=== PATIENT | female | born 1940 | race Caucasian/White ===

== ENCOUNTER 2021-03-22 14:03 | Observation (INO) ==
[2021-03-22] MEDS ORDERED: GLUCAGON 1 ML IV ONE (14:57)
[2021-03-22] MEDS ORDERED: LORazepam 0.5 MG/1 ML VIAL IV STA (14:57)
--- NOTE | 2021-03-22 15:02 | Emergency Department Note ---
Impression & Plan Esophageal obstruction due to food impaction ED Provider Note NAME: EUGENIO CISSE AGE: 80 SEX: F : 1940 ARRIVES VIA: Walk-In INFORMANT: [Patient] ED PROVIDER(S): [Russell Alcantar MD] CHIEF COMPLAINT: Food bolus HISTORY OF PRESENT ILLNESS: The patient is an 80-year-old female presents to the ER with 2 hours of a sensation of an esophageal food bolus. The patient has a history of the same. The patient states that she was eating beef brisket about 2 hours ago and she felt something get caught. She could not swallow liquid or her saliva. At first, she had a hard time catching her breath but she never really had any coughing. She is not coughing now. She feels very similar to how she has felt before. Patient is not from the area. A few years ago, she had an esophageal food bolus. She has also had esophageal dilatation in the past. She has been in baseline health. She is vaccinated against COVID-19. REVIEW OF SYSTEMS: See HPI for pertinent positives and negatives. A total of ten systems were reviewed and were otherwise negative. PMHx/PSHx: See Below SOCIAL HISTORY: See Below. PHYSICAL EXAM: GENERAL: Patient is in no acute distress. Spitting out her saliva. HEENT: No acute trauma, normocephalic atraumatic, mucous membranes moist, no nasal congestion, no scleral icterus. NECK: No stridor, no adenopathy, no meningismus, trachea is midline. LUNGS: Clear to auscultation bilaterally, no wheeze, no rhonchi, breath sounds equal. HEART: 2/6 systolic murmur, regular rate and rhythm. ABDOMEN: Soft, nontender, bowel sounds positive, no hernias, no peritonitis. EXTREMITIES: No cyanosis or edema, full range of motion of all the joints without pain or difficulty, no signs for acute trauma. NEUROLOGIC: Oriented x 3, no acute motor or sensory deficits, no focal weakness. SKIN: No rash, no jaundice, no diaphoresis. DIFFERENTIAL DIAGNOSIS: Esophageal food bolus, esophagitis, esophageal narrowing, esophageal rupture, esophageal ring, aspiration, esophageal abrasion, among others. EMERGENCY DEPARTMENT COURSE/PROCEDURES: ECG: Indication was shortness of breath. The ECG shows a normal sinus rhythm with some sinus arrhythmia. There is a left bundle branch block. The rate is 76. 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 There are no PVCs. The QTc is 450. Continuous Cardiac Monitoring: An order was placed for continuous cardiac monitoring. The monitor shows a rate of 84 with normal sinus rhythm. MEDICAL DECISION MAKING: There is no leukocytosis or concerning anemia. There is a normal platelet count. There was some renal insufficiency with a creatinine of 1.56. No electrolyte abnormality in need of emergent correction. Covid testing returned negative. Chest film did not show pneumonia or CHF. ECG showed a sinus rhythm with a left bundle branch block. On exam, the patient was not wheezing, she was not hypoxic or toxic. She was spitting out her saliva. Patient was given IV glucagon and IV Ativan. This did not help her situation. I spoke with GI on-call. The patient is going to the GI lab for an endoscopy. She will require a hospital stay overnight for monitoring. I did speak with the patient and case management. The on-call hospitalist was consulted. Past Med/Surg History Medical History GERD (gastroesophageal reflux disease) HTN (hypertension) LBBB (left bundle branch block) Surgical History (Updated 03/22/21 @ 19:34 by Quin Patricia PA-C) History of bladder surgery History of cataract surgery History of esophagogastroduodenoscopy (EGD) History of hysterectomy Hx of tonsillectomy Family History (Updated 03/22/21 @ 19:34 by Quin Patricia PA-C) Other Coronary heart disease Diabetes Social History Smoking Status: Never smoker Second Hand Exposure: No; Hx Alcohol Use: No Hx Substance Use: No Preferred Language: [employer] Reading Teacher Required: No Beliefs That Will Affect Care: None Current Living Situation: Alone Other Information That Helps Us Care for You: No Feels Safe at Home: Yes Safety Concerns: Feels Safe At This Time Assistive Devices: Denture - Upper, Denture - Lower and Glasses Allergies Allergies Allergy/AdvReac Type Severity Reaction Status Date / Time No Known Allergies Allergy Unverified 03/22/21 15:50 Home Meds Home Medications Medication Instructions Recorded Confirmed alprazolam 0.5 mg tablet (Xanax) 0.5 mg PO HS PRN 03/22/21 03/22/21 cholecalciferol (vitamin D3) 25 25 mcg PO DAILY 03/22/21 03/22/21 mcg (1,000 unit) capsule (Vitamin D3) losartan 100 1 tab PO DAILY 03/22/21 03/22/21 mg-hydrochlorothiazide 12.5 mg tablet omeprazole 40 mg capsule,delayed 40 mg PO DAILY 03/22/21 03/22/21 release Results & Data (ED) Vital Signs Vital Signs - 24 hr 03/22/21 14:21 03/22/21 16:04 03/22/21 16:26 Temperature 36.9 C 37 C Temperature Source Temporal Artery Scan Pulse Rate 84 86 Pulse Rate [Apical] 86 Pulse Rate from SpO2 Sensor 91 H Pulse Rhythm Regular Pulse Rhythm [Apical] Regular Pulse Strength [Apical] Normal Respiratory Rate 18 18 21 Respiratory Effort / Characteristics Non-Labored Spontaneous Spontaneous Respiratory Depth Normal Normal Respiratory Pattern Regular Regular Blood Pressure 144/91 H 139/80 Blood Pressure [Right Arm] 139/80 Blood Pressure Mean 108 99 Blood Pressure Mean [Right Arm] 99 Blood Pressure Position [Right Arm] Semi-fowlers Pulse Oximetry 95 97 95 Oxygen Delivery Method Room Air Room Air Oxygen Flow Rate 0 Sepsis Recent Fever Within 48 Hours No Sepsis New/Unexplained Change in Mental Status No Sepsis Action Taken by Nursing No Action Required Home Medications Current Medication List: was personally reviewed by me Laboratory Data Attestation: I reviewed the patient's lab results. Result diagrams: 03/22/21 15:15 03/22/21 15:15 Lab Results 03/22/21 03/22/21 03/22/21 Range/Units 15:15 15:15 15:30 WBC 6.38 (4.8-10.8) K/uL RBC 4.65 (4.2-5.4) M/uL Hgb 13.9 (12.0-16.0) g/dL Hct 41.9 (37-47) % MCV 90.1 (80-100) fL MCH 29.9 (25-34) pg MCHC 33.2 (32-36) g/dL RDW Std Deviation 43.6 (36.4-46.3) fL RDW Coeff of Liliana 13.3 (11.5-14.5) % Plt Count 272 (130-400) K/uL MPV 9.9 (7.4-10.4) fL Sodium 141 (136-145) mmol/L Potassium 4.0 (3.5-5.1) mmol/L Chloride 108 H (98-107) mmol/L Carbon Dioxide 28 (21-32) mmol/L Anion Gap 5.0 (3-11) BUN 31 H (7-18) mg/dl Creatinine 1.56 H (0.6-1.2) mg/dl Est Cr Clr Drug Dosing Not Reportable Est GFR ( Amer) 36.0 ml/min Est GFR (Non-Af Amer) 31.1 ml/min BUN/Creatinine Ratio 20.0 (10-20) Glucose 107 H (70-99) mg/dl Calcium 9.7 (8.5-10.1) mg/dl COVID-19 Eval Order Covid19 at [facility] SARS-CoV-2 (PCR) (Negative) 03/22/21 Range/Units 15:30 WBC (4.8-10.8) K/uL RBC (4.2-5.4) M/uL Hgb (12.0-16.0) g/dL Hct (37-47) % MCV (80-100) fL MCH (25-34) pg MCHC (32-36) g/dL RDW Std Deviation (36.4-46.3) fL RDW Coeff of Liliana (11.5-14.5) % Plt Count (130-400) K/uL MPV (7.4-10.4) fL Sodium (136-145) mmol/L Potassium (3.5-5.1) mmol/L Chloride (98-107) mmol/L Carbon Dioxide (21-32) mmol/L Anion Gap (3-11) BUN (7-18) mg/dl Creatinine (0.6-1.2) mg/dl Est Cr Clr Drug Dosing Est GFR ( Amer) ml/min Est GFR (Non-Af Amer) ml/min BUN/Creatinine Ratio (10-20) Glucose (70-99) mg/dl Calcium (8.5-10.1) mg/dl COVID-19 Eval Order SARS-CoV-2 (PCR) NEGATIVE (Negative) Administered Medications Discontinued Medications Glucagon (Glucagen) 1 mls @ 1 mls/min IV ONE ONE Stop: 03/22/21 14:58 Last Admin: 03/22/21 15:16 Dose: 1 mls/min Documented by: [id number] Lorazepam (Ativan) 0.5 mg in 1 mls @ 1 mls/min IV NOW STA Stop: 03/22/21 14:58 Last Admin: 03/22/21 15:15 Dose: 1 mls/min Documented by: [id number] Imaging Data Radiologist's Impression: Chest X-Ray 03/22/21 14:57 XR chest 1V portable CLINICAL HISTORY: cough COMPARISON STUDY: No previous studies for comparison. FINDINGS: No pneumothorax. No pleural effusion. No large infiltrates or consolidative lesions are seen. Eventration of the right hemidiaphragm is seen. Lung volumes are decreased with crowded lung markings. Cardiomediastinal silhouette is within normal limits in size. No significant pulmonary vascular congestion.. Aorta is tortuous. Osseous structures: Degenerative changes of the spine. IMPRESSION: 1. No large infiltrates or consolidative lesions. Lung volumes are decreased with crowded lung markings. ACT 112: Negative or not required by law. The above report was generated using voice recognition software. It may contain grammatical, syntax or spelling errors. Electronically signed by: Jeanine Mejia DO 03/22/2021 4:05 PM Discharge Plan Visit Data Chief Complaint: Food Bolus Stated Complaint: FOOD BOLUS ED Provider: Russell Alcantar Discharge Problem: Esophageal obstruction due to food impaction Patient Disposition: Admitted As Inpatient Condition: Good Discharge Instructions Interventions: ED Discharge Assessment Last Done: 03/22/21 17:45
[2021-03-22 15:22] LABS: Hematocrit (blood only) 41.9 % (37-47); Hemoglobin 13.9 g/dL (12.0-16.0); Mean Corpuscular Hemoglobin 29.9 pg (25-34); Mean Corpuscular Hgb Conc 33.2 g/dL (32-36); Mean Corpuscular Volume 90.1 fL (80-100); Mean Platelet Volume 9.9 fL (7.4-10.4); Platelet Count 272 K/uL (130-400); RDW Coefficient of Variation 13.3 % (11.5-14.5); RDW Standard Deviation 43.6 fL (36.4-46.3); Red Blood Count 4.65 M/uL (4.2-5.4); White Blood Count 6.38 K/uL (4.8-10.8)
[2021-03-22 15:39] LABS: Blood Urea Nitrogen 31 mg/dl (7-18); Calcium 9.7 mg/dl (8.5-10.1); Carbon Dioxide 28 mmol/L (21-32); Chloride 108 mmol/L (98-107); Est GFR (Non-African American) 31.1 ml/min; Glucose 107 mg/dl (70-99); Sodium 141 mmol/L (136-145)
--- NOTE | 2021-03-22 15:55 | Electrocardiogram Report ---
Test Reason : Blood Pressure : / mmHG Vent. Rate : 076 BPM Atrial Rate : 076 BPM P-R Int : 160 ms QRS Dur : 144 ms QT Int : 400 ms P-R-T Axes : 029 -44 119 degrees QTc Int : 450 ms Normal sinus rhythm with sinus arrhythmia Left axis deviation Non-specific intra-ventricular conduction block Possible Anterolateral infarct , age undetermined Abnormal ECG No previous ECGs available Confirmed by Mark Merida ([id number]) on 03/22/2021 3:55:41 PM Referred By: Confirmed By:Familia Merida
--- NOTE | 2021-03-22 16:06 | XRay Report ---
XR chest 1V portable CLINICAL HISTORY: cough COMPARISON STUDY: No previous studies for comparison. FINDINGS: No pneumothorax. No pleural effusion. No large infiltrates or consolidative lesions are seen. Eventration of the right hemidiaphragm is see n. Lung volumes are decreased with crowded lung markings. Cardiomediastinal silhouette is within normal limits in size. No significant pulmonary vascular congestion.. Aorta is tortuous. Osseous structures: Degenerative changes of the spine. IMPRESSION: 1. No large infiltrates or consolidative lesions. Lung volumes are decreased with crowded lung kenton ngs. ACT 112: Negative or not required by law. The above report was generated using voice recognition software. It may contain grammatical, syntax o r spelling errors. Electronically signed by: Jeanine Mejia DO 03/22/2021 4:05 PM
--- NOTE | 2021-03-22 16:20 | Anesthesiology Consultation ---
Date of Service March 22, 2021 Assessment & Plan Chart Review Chart Review: Acceptable Risk for Surgery Consults Requested none Proposed Anesthesia Anesthesia Type: General History Surgery Operation Date: 03/22/21 17:30 Proposed Procedures p Esophagogastroduodenoscopy(Not Applicable) - Ladarius Hampton MD Height/Weight Weight: 74.7 kg Allergies Allergy/AdvReac Type Severity Reaction Status Date / Time No Known Allergies Allergy Unverified 03/22/21 15:50 Medications Home Medications Medication Instructions Recorded Confirmed Last Taken alprazolam 0.5 mg tablet (Xanax) 0.5 mg PO HS 03/22/21 03/22/21 03/21/21 hydrochlorothiazide 100 mg tablet 100 mg PO Q OTHER DAY 03/22/21 03/22/21 03/22/21 losartan 100 1 tab PO DAILY 03/22/21 03/22/21 03/22/21 mg-hydrochlorothiazide 12.5 mg tablet omeprazole 20 mg tablet,delayed 20 mg PO DAILY 03/22/21 03/22/21 03/22/21 release Exercise / Class Metabolic Activity III < 4 Walking/Shop/Light housework Past Anesthesia History No Hx of Anesthesia Complications and No Family Hx of Anesthesia Complications History of PONV No Hx of PONV and No Hx of Motion Sickness Social History Smoking Status: Never smoker Physical Exam Vital Signs Last Vital Signs Temp 36.9 C 03/22/21 14:21 Pulse 84 03/22/21 14:21 Resp 18 03/22/21 14:21 BP 144/91 H 03/22/21 14:21 Pulse Ox 95 03/22/21 14:21 Testing Laboratory Results 03/22/21 15:15 03/22/21 15:15 Electrocardiogram Date: 03/22/21 Findings: + NSR @ (at 76), + LBBB and + CO (? old anterolat. infarct) Chest X-Ray Date: 03/22/21 Findings: + NAD
--- NOTE | 2021-03-22 16:24 | Gastrointestinal Consultation ---
Date of Consultation March 22, 2021 Assessment & Plan (1) Dysphagia: secondary to food bolus, with hx stricture. recs: NPO urgent EGD in the OR now to relieve the obstruction with possible dilation as well supportive care rest as per primary team admit to medicine for monitoring overnight tonight Thank you for allowing me to participate in the care of this patient History of Present Illness Reason for Consultation: food bolus Requesting Physician: Russell Alcantar History of Present Illness 80 yo female with hx multiple food bolus impactions, last in 2019 here with dysphagia. She ate brisket and pork and other meat earlier today around 1230 pm and after she started eating noted immediately she had dysphagia, had dyspnea as well at the time. She was given glucagon in the ER without improvement, currently is having difficulty swallowing her secretions but not short of breath. Feels like the food is stuck right now. No abdominal pains. 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 She is from out of [place], [place] and sees GI over there. labs reviewed. Allergies Allergy/AdvReac Type Severity Reaction Status Date / Time No Known Allergies Allergy Unverified 03/22/21 15:50 Home Medications Medication Instructions Recorded Confirmed Type alprazolam 0.5 mg tablet (Xanax) 0.5 mg PO HS 03/22/21 03/22/21 History hydrochlorothiazide 100 mg tablet 100 mg PO Q OTHER DAY 03/22/21 03/22/21 History losartan 100 1 tab PO DAILY 03/22/21 03/22/21 History mg-hydrochlorothiazide 12.5 mg tablet omeprazole 20 mg tablet,delayed 20 mg PO DAILY 03/22/21 03/22/21 History release Patient History Social History Smoking Status: Never smoker Feels Safe at Home: Yes Review of Systems Constitutional: no fever, no chills and no weight loss Eyes: as per Subjective / HPI Ear, Nose, Mouth, Throat: as per Subjective / HPI Respiratory: no dyspnea and no dyspnea on exertion Cardiovascular: no chest pain and no palpitations Gastrointestinal: as per Subjective / HPI Musculoskeletal: no joint pain and no swelling Integumentary: no rash and no lesions Neurologic: no numbness and no paresthesia Psychiatric: no depression and no anxiety Endocrine: no fatigue Hematologic / Lymphatic: no easy bleeding and no easy bruising Physical Exam Constitutional: WD/WN, vitals as above Eyes: EOM intact bilaterally Neck: normal visual inspection Respiratory: normal respiratory effort, lungs clear to auscultation Cardiovascular: RRR, no murmur, no edema Gastrointestinal (Abdomen): Inspection/Auscultation: abdomen normal to inspection; abdomen not distended Percussion/Palpation: abdomen soft; abdomen nontender and no hepatosplenomegaly Musculoskeletal: Extremities: no cyanosis Gait: normal gait Skin: no rashes, warm and dry Neurologic: moves all extremities Psychiatric: A+Ox3, euthymic affect Results & Data ([facility]) Vital Signs (Past 12 Hours) Vital Signs Temp Pulse Resp BP Pulse Ox 03/22/21 14:21 36.9 C 84 18 144/91 H 95 PG Care Time/CCT Total # of Minutes Spent Total Time Spent with Patient: Total time spent is greater than 50% in coordination of care (as documented) at patient's floor/unit and/or counseling patient: Coding Level of Care Code 42291 Office/OBS Consult Lvl 4 Diagnoses Dysphagia R13.10
--- NOTE | 2021-03-22 17:03 | History & Physical Report ---
Date of Service March 22, 2021 Assessment & Plan (1) Dysphagia: Plan: Pt is 80 y/o F with PMH HTN, GERD, LBBB, h/o esophageal dilation presented to ER with c/o food bolus occurred prior to arrival. Patient states was eating brisket, pork for lunch around 1230 when she felt like food got stuck in her throat and is having discomfort. In ER vitals stable. glucagon tried without relief of food bolus GI consult - saw patient and taking pt for emergent EGD N.p.o. for now, further diet per GI recommendation Plan to resume PPI after EGD, may need to change to Protonix, will await further GI recommendation CBC, BMP in a.m. (2) HTN (hypertension): Plan: Stable Continue lisinopril/HCTZ (3) Renal insufficiency: Plan: Cr: 1.5. GFR: 36 Unknown baseline Monitor renal functions, avoid nephrotoxic agents when possible (4) GERD (gastroesophageal reflux disease): Plan: Will plan to resume PPI, however probably will need to change to Protonix. Will await further GI recommendations DVT Prophylaxis -SCDs Full Code as per discussion with pt Follows with Dr Sayda Thomas in [place], [place] for routine care Pt was seen and care coordinated with Dr Horn. See addendum History of Present Illness Chief Complaint: "food stuck in throat" Primary Care Provider: Dr Sayda Thomas Pt is 80 y/o F with PMH HTN, GERD, LBBB, h/o esophageal dilation presented to ER with c/o food bolus occurred prior to arrival. Patient states was eating brisket, pork for lunch around 1230 when she felt like food got stuck in her throat and is having discomfort. Patient states is intermittently spitting up saliva since. Denies shortness of breath. Patient reports history episodes of food bolus in the past and required 2 prior EGDs, most recent in 2019, and reports history of esophageal dilation. Denies fever/chills, diaphoresis, N/V/D/C, BROCK, dizziness, syncope, vision changes, neck pain, CP, SOB, orthopnea, palpitations, cough, sore throat, choking, otalgia, rhinorrhea, abdominal pain, paresthesias, weakness, extremity weakness, extremity edema, rashes, urinary symptoms. In ER glucagon tried without relief of food bolus. GI saw patient and planning to take patient for emergent EGD. Allergies Allergy/AdvReac Type Severity Reaction Status Date / Time No Known Allergies Allergy Unverified 03/22/21 15:50 Home Medications Medication Instructions Recorded Confirmed Type alprazolam 0.5 mg tablet (Xanax) 0.5 mg PO HS PRN 03/22/21 03/22/21 History cholecalciferol (vitamin D3) 25 25 mcg PO DAILY 03/22/21 03/22/21 History mcg (1,000 unit) capsule (Vitamin D3) losartan 100 1 tab PO DAILY 03/22/21 03/22/21 History mg-hydrochlorothiazide 12.5 mg tablet omeprazole 40 mg capsule,delayed 40 mg PO DAILY 03/22/21 03/22/21 History release Past Med/Surg History Medical History GERD (gastroesophageal reflux disease) HTN (hypertension) LBBB (left bundle branch block) Surgical History (Updated 03/22/21 @ 19:34 by Quin Patricia PA-C) History of bladder surgery History of cataract surgery History of esophagogastroduodenoscopy (EGD) History of hysterectomy Hx of tonsillectomy Family History (Updated 03/22/21 @ 19:34 by Quin Patricia PA-C) Other Coronary heart disease Diabetes Social History Smoking Status: Never smoker Second Hand Exposure: No; Hx Alcohol Use: No Hx Substance Use: No Preferred Language: Maldivian Bilingual Secretary Required: No Beliefs That Will Affect Care: None Current Living Situation: Alone Other Information That Helps Us Care for You: No Feels Safe at Home: Yes Safety Concerns: Feels Safe At This Time Assistive Devices: Denture - Upper, Denture - Lower and Glasses Review of Systems Review of Systems: All systems reviewed & are unremarkable except as noted in HPI & below Physical Exam Physical Exam: General: no distress, WDWN Head: normocephalic, atraumatic Eyes: conjunctiva non-injected, anicteric ENT: normal inspection external ears, nose, mucous membranes moist Neck: supple, trachea midline Lungs: clear, no respiratory distress, no wheezing/rhonchi/rales CV: RRR, no murmur, no pretibial edema Abd: normal BS, soft, non-tender Ext: no cyanosis, no calf tenderness Neuro: A&O x 3, no focal deficits noted, normal affect Skin: warm, dry Results & Data Results & Data ([facility]) Vital Signs (Past 12 Hours) Vital Signs Temp Pulse Pulse Resp BP BP Pulse Ox 03/22/21 16:04 86 18 139/80 97 03/22/21 14:21 36.9 C 84 18 144/91 H 95 Laboratory Results Short CBC 03/22/21 Range/Units 15:15 WBC 6.38 (4.8-10.8) K/uL Hgb 13.9 (12.0-16.0) g/dL Hct 41.9 (37-47) % Plt Count 272 (130-400) K/uL BMP 03/22/21 15:15 Sodium 141 Potassium 4.0 Chloride 108 H Carbon Dioxide 28 BUN 31 H Creatinine 1.56 H Glucose 107 H Calcium 9.7 Diagnostic Findings Chest X-Ray 03/22/21 14:57 XR chest 1V portable CLINICAL HISTORY: cough COMPARISON STUDY: No previous studies for comparison. FINDINGS: No pneumothorax. No pleural effusion. No large infiltrates or consolidative lesions are seen. Eventration of the right hemidiaphragm is seen. Lung volumes are decreased with crowded lung markings. Cardiomediastinal silhouette is within normal limits in size. No significant pulmonary vascular congestion.. Aorta is tortuous. Osseous structures: Degenerative changes of the spine. IMPRESSION: 1. No large infiltrates or consolidative lesions. Lung volumes are decreased with crowded lung markings. ACT 112: Negative or not required by law. The above report was generated using voice recognition software. It may contain grammatical, syntax or spelling errors. Electronically signed by: Jeanine Mejia DO 03/22/2021 4:05 PM Code Status & VTE Plan VTE Prophylaxis Plan VTE Prophylaxis will be ordered: Yes Supervising Physician Co-Signing Physician Notes Attending addendum: The patient was seen and examined in the emergency room in presence of the daughter This is a third esophageal obstruction following a food bolus She is a status post dilatation before Denies any significant symptoms specially no shortness of breath or pain On examination Lying in bed comfortably Hemodynamically stable Chestclear to auscultate bilaterally Abdomenbenign HeartS1-S2, regular Her admission labs and imaging studies reviewed She has food plus obstruction in the esophagus Status post prior esophageal dilatation GI consulted for EGD Reviewed assessment and plan as outlined above by SHAUN Montero Dr
[2021-03-22] MEDS ORDERED: fentaNYL citrate 100 MCG/2 ML VIAL ONE (17:55)
[2021-03-22] MEDS ORDERED: SUCCINYLCHOLINE CHLORIDE 20 MG/ML 10 ML VIAL IV ONE (18:25)
[2021-03-22] MEDS ORDERED: PROPOFOL IV EMULSION 10 MG/ML 20 ML VIAL IV ONE (18:25)
--- NOTE | 2021-03-22 18:37 | GI REPORT ---
Patient Name: Neisha Bird Procedure Date: 03/22/2021 4:58 PM Date of : 1940 Admit Type: Emergency Department Age: 80 Gender: Female Attending MD: Ladarius Hampton MD Procedure: Upper GI endoscopy Providers: Ladarius Hampton MD Referring MD: Referred Self Indications: Dysphagia, Foreign body in the esophagus Medicines: Monitored Anesthesia Care Complications: No immediate complications. Estimated blood loss: None. Estimated Blood Loss: Estimated blood loss: none. Procedure: Pre-Anesthesia Assessment: - Prior Anticoagulants: The patient has taken no previous anticoagulant or antiplatelet agents. - ASA Grade Assessment: II - A patient with mild systemic disease. After obtaining informed consent, the endoscope was passed under direct vision. Throughout the procedure, the patient's blood pressure, pulse, and oxygen saturations were monitored continuously. The Endoscope was introduced through the mouth, and advanced to the second part of duodenum. The upper GI endoscopy was accomplished without difficulty. The patient tolerated the procedure well. Findings: Food was found in the upper third of the esophagus and in the middle third of the esophagus. Removal of food was accomplished using talons. Estimated blood loss: none. LA Grade B (one or more mucosal breaks greater than 5 mm, not extending between the tops of two mucosal folds) esophagitis with no bleeding was found. Biopsies were taken with a cold forceps for histology. Estimated blood loss: none. A mild Schatzki ring was found in the lower third of the esophagus. A TTS dilator was passed through the scope. Dilation with an 18-19-20 mm balloon dilator was performed to 19 mm with improved narrowing. Estimated blood loss: none. Localized mildly erythematous mucosa without bleeding was found in the gastric antrum. A medium amount of food (residue) was found in the gastric body. The duodenal bulb and second portion of the duodenum were normal. Impression: - Food in the upper third of the esophagus and in the middle third of the esophagus. Removal was successful. - LA Grade B esophagitis. Biopsied. - Mild Schatzki ring. Dilated. - Erythematous mucosa in the antrum. - A medium amount of food (residue) in the stomach. - Normal duodenal bulb and second portion of the duodenum. Recommendation: - [facility] for [facility] care. - Clear liquid diet today. advance as tolerated tomorrow morning if stable -supportive care -protonix 40 mg BID for 3 months, then daily thereafter - Await pathology results. Ladarius Hampton MD 03/22/2021 6:37:01 PM This report has been signed electronically. Note Initiated On: 03/22/2021 4:58 PM Number of Addenda: 0 I attest to the content of the Intraoperative Record and orders documented therein, exceptions below {[id number]}
--- NOTE | 2021-03-22 18:38 | Procedure Note ---
Procedure Note Date of Service March 22, 2021 Note GI brief procedure/post op note EGD findings: food bolus impacting upper esophagus, removed with talons. schatzki ring, dilated with balloon to 19 mm. esophagitis, biopsied. Recs: protonix 40 mg BID for 3 months, then daily thereafter clears today, advance diet as tolerated tomorrow if stable supportive care f/u path results Ladarius Hampton MD Gastroenterology Coding
[2021-03-22] MEDS ORDERED: PROMETHAZINE HCL 12.5 MG in SODIUM CHLORIDE 0.9% 50 ML IV PRN (18:43)
[2021-03-22] MEDS ORDERED: fentaNYL citrate 100 MCG/2 ML VIAL IV PRN (18:43)
[2021-03-22] MEDS ORDERED: LABETALOL HCL IV 5 MG/ML 20ML IV PRN (18:43)
[2021-03-22] MEDS ORDERED: ONDANSETRON INJ 2 MG/ML 2 ML VIAL IV PRN ×2 (18:43→20:18)
[2021-03-22] MEDS ORDERED: ATROPINE SULFATE 0.1 MG/ML 10ML SYR IV PRN (18:43)
[2021-03-22] MEDS ORDERED: ePHEDrine sulfate 50 MG/ML AMP IV PRN (18:43)
[2021-03-22] MEDS ORDERED: NALOXONE HCL 0.4 MG/1 ML VIAL/CARP IV PRN (18:43)
--- NOTE | 2021-03-22 19:13 | Anesthesiology Progress Note ---
Date of Service March 22, 2021 Anesthesia Post Procedure Vital Signs Vital Signs: Temp Pulse Pulse Resp BP BP Pulse Ox 03/22/21 19:09 74 19 136/77 95 03/22/21 18:59 76 21 122/76 99 03/22/21 17:45 82 18 134/77 97 03/22/21 16:26 37 C 86 21 139/80 95 03/22/21 16:04 86 18 139/80 97 03/22/21 14:21 36.9 C 84 18 144/91 H 95 Transfer of Care Handoff Completed per policy Notes Mental Status: alert / awake / arousable Patient Amnestic to Procedure: Yes Nausea / Vomiting: adequately controlled Pain: adequately controlled Airway Patency, RR, SpO2: stable & adequate BP & HR: stable & adequate Hydration State: stable & adequate Anesthetic Complications: no major complications apparent
[2021-03-22] MEDS ORDERED: ACETAMINOPHEN 325 MG TAB PO PRN (20:18)
[2021-03-22] MEDS ORDERED: ALPRAZolam 0.5 MG TABLET PO PRN (20:18)
[2021-03-23 03:28] VITALS: PULSE 70; O2SAT 93
[2021-03-23 05:59] LABS: Hemoglobin 12.4 g/dL (12.0-16.0); Mean Corpuscular Hemoglobin 29.8 pg (25-34); Mean Corpuscular Hgb Conc 32.6 g/dL (32-36); Mean Corpuscular Volume 91.3 fL (80-100); Platelet Count 257 K/uL (130-400); RDW Coefficient of Variation 13.3 % (11.5-14.5); RDW Standard Deviation 44.5 fL (36.4-46.3); Red Blood Count 4.16 M/uL (4.2-5.4); White Blood Count 5.72 K/uL (4.8-10.8)
[2021-03-23 06:47] LABS: BUN Creatinine Ratio 21.9 (10-20); Creatinine Clr Calc Pharmacy 30.4 ml/min; Est GFR (African American) 45.7 ml/min; Est GFR (Non-African American) 39.4 ml/min; Potassium 3.6 mmol/L (3.5-5.1)
[2021-03-23 07:57] VITALS: BP 106/67; TEMP 98.1
[2021-03-23] MEDS ORDERED: PANTOprazole 40 MG TAB PO SCH (09:00)
[2021-03-23] MEDS ORDERED: CHOLECALCIFEROL 1,000 UNITS 25 MCG TAB PO SCH (09:00)
[2021-03-23] MEDS ORDERED: hydroCHLOROthiazide 25 MG TAB PO SCH (09:00)
[2021-03-23] MEDS ORDERED: LOSARTAN POTASSIUM 50 MG TAB PO SCH (09:00)
[2021-03-23] MEDS ORDERED: NON-FORMULARY MEDICATION (Losartan-Hydrochlorothiazide 100-12.5 mg Tablet) PO SCH (09:00)
--- NOTE | 2021-03-23 11:59 | Hospitalist Progress Note ---
Date of Service March 23, 2021 Assessment & Plan (1) Dysphagia: Plan: Pt is 80 y/o F with PMH HTN, GERD, LBBB, h/o esophageal dilation presented to ER with c/o food bolus occurred prior to arrival. Patient states was eating brisket, pork for lunch around 1230 when she felt like food got stuck in her throat and is having discomfort. In ER vitals stable. glucagon tried without relief of food bolus GI consult - saw patient and taking pt for emergent EGD N.p.o. for now, further diet per GI recommendation Plan to resume PPI after EGD, may need to change to Protonix, will await further GI recommendation Status post EGD on 03/22/2021 with removal of food bolus from upper and middle third of esophagus with dilatation of the Schatzki's ring She has been tolerating diet and will be sent home this afternoon PPI will be given twice daily for 3 months (2) HTN (hypertension): Plan: Stable Continue lisinopril/HCTZ (3) Renal insufficiency: Plan: Cr: 1.5. GFR: 36 Unknown baseline Monitor renal functions, avoid nephrotoxic agents when possible Creatinine is minimally decreased at 1.28 (4) GERD (gastroesophageal reflux disease): Plan: Will plan to resume PPI, however probably will need to change to Protonix. Will await further GI recommendations DVT Prophylaxis -SCDs Full Code as per discussion with pt Follows with Dr Sayda Thomas in [place], [place] for routine care She'll be discharged home this afternoon Admission and Anticipated Discharge Date Admission Date: March 22, 2021 Subjective 03/23/2021 The patient was seen and examined in medical telemetry unit She is status post EGD and removal of food bolus with dilatation of the Schatzki's ring Has been feeling much better and tolerating diet She'll be sent home this afternoon Review of Systems Review of Systems: All systems reviewed and are unremarkable except as noted below Physical Exam Physical Exam: Lying in bed comfortably Constitutional: well developed and well nourished; not ill appearing Eyes: PERRL, conjunctivae normal, anicteric sclerae ENMT: external ear and nose normal, oropharynx normal Neck: trachea midline, no thyromegaly Respiratory: no respiratory distress Auscultation: lungs clear to auscultation bilaterally Cardiovascular: Rate/Rhythm: regular rate and regular rhythm; not tachycardic Heart Sounds: normal S1 and normal S2; no murmur Gastrointestinal (Abdomen): Inspection/Auscultation: normal bowel sounds; abdomen not distended Percussion/Palpation: abdomen soft; abdomen nontender Musculoskeletal: No acute arthritis in any joint Neurologic: Alert, awake and oriented x3. No focal sensory and motor deficit appreciated Lymphatic: no cervical or axillary lymphadenopathy Results & Data Results & Data ([facility]) Vital Signs (Past 12 Hours) Vital Signs Temp Pulse Pulse Resp BP Pulse Ox 03/23/21 11:45 36.7 C 70 18 106/67 93 03/23/21 07:56 36.7 C 70 18 106/67 93 03/23/21 03:27 36.6 C 70 20 104/62 93 03/23/21 00:13 61 Laboratory Results Short CBC 03/22/21 03/23/21 Range/Units 15:15 05:32 WBC 6.38 5.72 (4.8-10.8) K/uL Hgb 13.9 12.4 (12.0-16.0) g/dL Hct 41.9 38.0 (37-47) % Plt Count 272 257 (130-400) K/uL BMP 03/22/21 03/23/21 15:15 05:32 Sodium 141 141 Potassium 4.0 3.6 Chloride 108 H 109 H Carbon Dioxide 28 27 BUN 31 H 28 H Creatinine 1.56 H 1.28 H Glucose 107 H 84 Calcium 9.7 9.0 Medications Administered Current Inpatient Medications Acetaminophen (Acetaminophen 325 Mg Tab) 650 mg PO Q4H PRN PRN Reason: Pain or Fever Stop: 04/21/21 20:17 Alprazolam (Alprazolam 0.5 Mg Tablet) 0.5 mg PO HS PRN PRN Reason: Anxiety Stop: 04/21/21 20:17 Last Admin: 03/22/21 23:35 Dose: 0.5 mg Documented by: Hydrochlorothiazide (Hydrochlorothiazide 25 Mg Tab) 12.5 mg PO DAILY ARUN Stop: 04/22/21 08:59 Last Admin: 03/23/21 09:25 Dose: Not Given Documented by: Losartan Potassium (Losartan Potassium 50 Mg Tab) 100 mg PO DAILY ARUN Stop: 04/22/21 08:59 Last Admin: 03/23/21 09:25 Dose: Not Given Documented by: Ondansetron HCl (Ondansetron Inj 2 Mg/Ml 2 Ml Vial) 4 mg IV Q6H PRN PRN Reason: Nausea Stop: 04/21/21 20:17 Pantoprazole Sodium (Pantoprazole 40 Mg Tab) 40 mg PO BID [facility] Stop: 04/22/21 08:59 Last Admin: 03/23/21 09:25 Dose: Not Given Documented by: Vitamin D (Cholecalciferol 1,000 Units 25 Mcg Tab) 1,000 units PO DAILY [facility] Stop: 04/22/21 08:59 Last Admin: 03/23/21 09:25 Dose: Not Given Documented by:
--- NOTE | 2021-03-23 15:49 | Discharge Summary ---
Date of Service March 23, 2021 Admission HPI Per Admitting Provider Pt is 80 y/o F with PMH HTN, GERD, LBBB, h/o esophageal dilation presented to ER with c/o food bolus occurred prior to arrival. Patient states was eating brisket, pork for lunch around 1230 when she felt like food got stuck in her throat and is having discomfort. Patient states is intermittently spitting up saliva since. Denies shortness of breath. Patient reports history episodes of food bolus in the past and required 2 prior EGDs, most recent in 2019, and reports history of esophageal dilation. Denies fever/chills, diaphoresis, N/V/D/C, BROCK, dizziness, syncope, vision changes, neck pain, CP, SOB, orthopnea, palpitations, cough, sore throat, choking, otalgia, rhinorrhea, abdominal pain, paresthesias, weakness, extremity weakness, extremity edema, rashes, urinary symptoms. In ER glucagon tried without relief of food bolus. GI saw patient and planning to take patient for emergent EGD. 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, status post EGD with removal of food bolus and dilatation of the Schatzki's ring Discharge Exam Constitutional well developed and well nourished; not ill appearing Eyes PERRL, conjunctivae normal, anicteric sclerae ENMT external ear and nose normal, oropharynx normal Neck trachea midline, no thyromegaly Respiratory no respiratory distress Auscultation: lungs clear to auscultation bilaterally Cardiovascular Rate/Rhythm: regular rate and regular rhythm; not tachycardic Heart Sounds: normal S1 and normal S2; no murmur Gastrointestinal (Abdomen) Inspection/Auscultation: normal bowel sounds; abdomen not distended Percussion/Palpation: abdomen soft; abdomen nontender Lymphatic no cervical or axillary lymphadenopathy Discharge Data Allergies Allergy/AdvReac Type Severity Reaction Status Date / Time No Known Allergies Allergy Unverified 03/22/21 15:50 Consultations 03/22/21 16:01 Consult Gastroenterology Stat 03/22/21 16:30 ED Decision to Admit Stat 03/22/21 20:18 Consult Gastroenterology Routine Procedures Performed Operation Date: 03/22/21 17:30 Actual Procedures p Esophagogastroduodenoscopy(Not Applicable) - Ladarius Hampton MD s EGD Biopsy Dilatation - Ladarius Hampton MD s EGD Foreign Body Removal - Ladarius Hampton MD Hospital Course (1) Dysphagia: Pt is 80 y/o F with PMH HTN, GERD, LBBB, h/o esophageal dilation presented to ER with c/o food bolus occurred prior to arrival. Patient states was eating brisket, pork for lunch around 1230 when she felt like food got stuck in her throat and is having discomfort. In ER vitals stable. glucagon tried without relief of food bolus GI consult - saw patient and taking pt for emergent EGD N.p.o. for now, further diet per GI recommendation Plan to resume PPI after EGD, may need to change to Protonix, will await further GI recommendation Status post EGD on 03/22/2021 with removal of food bolus from upper and middle third of esophagus with dilatation of the Schatzki's ring She has been tolerating diet and will be sent home this afternoon PPI will be given twice daily for 3 months (2) HTN (hypertension): Stable Continue lisinopril/HCTZ (3) Renal insufficiency: Cr: 1.5. GFR: 36 Unknown baseline Monitor renal functions, avoid nephrotoxic agents when possible Creatinine is minimally decreased at 1.28 (4) GERD (gastroesophageal reflux disease): Will plan to resume PPI, however probably will need to change to Protonix. 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, status post EGD with removal of food bolus and dilatation of the Schatzki's ring Condition on Discharge: Good Activity: Resume your previous activity Non-emergency contact: Primary Care Provider Call non-emergency contact if: you have any medication questions and your symptoms worsen Follow-up/Referrals: PCP,NO [Primary Care Provider] - (Please make an appointment with your primary care physician within 1 week) Diet: Regular and Low Sodium (2gm) Diet Texture: Dental soft (bite-sized) Addtl Attending Provider Instructions: Please take precautions to avoid fall Take extra time to chew and swallow Try to avoid any foods Chunk Continue Protonix twice daily for 3 months and then once daily Pending Studies at Discharge: Yes Studies:: Pathology report of esophageal biopsy Stand-Alone Forms: My [facility], Smoking Cessation Medications and DC Order Prescriptions: New pantoprazole 40 mg Tablet,Delayed Release (Dr/Ec) 40 mg PO BID 30 Days Qty: 60 RF: 0 Continued alprazolam [Xanax] 0.5 mg Tablet 0.5 mg PO HS PRN (Reason: Anxiety) RF: 0 losartan-hydrochlorothiazide 100-12.5 mg Tablet 1 tab PO DAILY RF: 0 cholecalciferol (vitamin D3) [Vitamin D3] 25 mcg (1,000 unit) Capsule 25 mcg PO DAILY RF: 0 Discontinued omeprazole 40 mg capsule,delayed release(DR/EC) 40 mg PO DAILY RF: 0 Discharge Orders: Discharge Order (Routine); Ordered 03/23/21 Ordered By: Jessy Horn Admission Data Admit Date/Time: 03/22/21 16:41 Attending Provider: Jessy Horn Admit Provider: Jessy Horn Primary Care Provider: PCP,NO Other Providers: Ladarius Hampton ; Jessy Horn Other Interventions: Discharge Summary Assessment (RN) Last Done: 03/23/21 11:45
== END 2021-03-23 15:00 | disposition home or self-care (01) ==
LOC: ED 14:03 → OR 17:45 → 2N 17:45